=== PATIENT | female | born 1990 | race Caucasian/White ===

== ENCOUNTER 2021-03-08 18:55 | Emergency (ER) | payer OTHER ==
[~2021-03-08] VITALS: Ht 165.1 cm; Wt 87.4 kg
[2021-03-08 21:17] LABS: BASO % 0.3 % (0.0-1.0); EOS # 0.1 10^3/uL (0.0-0.5); EOS % 0.8 % (0.0-3.0); HEMATOCRIT 43.6 % (36.0-47.0); HEMOGLOBIN 14.2 g/dl (12.0-15.5); LYMPH # 1.5 10^3/uL (1.5-5.0); LYMPH % 19.8 % (24.0-44.0); MEAN CORPUSCULAR HEMOGLOBIN 28.2 pg (27.0-33.0); MEAN CORPUSCULAR HGB CONC 32.6 g/dl (32.0-36.5); MEAN CORPUSCULAR VOLUME 86.7 fl (80.0-96.0); MONO # 0.4 10^3/uL (0.0-0.8); MONO % 5.5 % (2.0-8.0); NEUTROPHILS # 5.6 10^3/uL (1.5-8.5); NEUTROPHILS % 73.3 % (36.0-66.0); PLATELET COUNT, AUTOMATED 367 10^3/uL (150-450); RED BLOOD COUNT 5.03 10^6/uL (4.00-5.40); WHITE BLOOD COUNT 7.6 10^3/uL (4.0-10.0)
[2021-03-08 21:45] LABS: ALBUMIN 4.3 GM/DL (3.2-5.2); ALT/SGPT 666 U/L (12-78); BILIRUBIN,DIRECT 1.1 MG/DL (0.0-0.2); BILIRUBIN,TOTAL 1.6 MG/DL (0.2-1.0); BLOOD UREA NITROGEN 6 MG/DL (7-18); CALCIUM LEVEL 9.4 MG/DL (8.5-10.1); CARBON DIOXIDE LEVEL 29 MEQ/L (21-32); CHLORIDE LEVEL 105 MEQ/L (98-107); CREATININE FOR GFR 0.59 MG/DL (0.55-1.30); GLOMERULAR FILTRATION RATE > 60.0 (>60); GLUCOSE, FASTING 89 MG/DL (70-100); LIPASE 97 U/L (73-393); POTASSIUM SERUM 3.7 MEQ/L (3.5-5.1); SODIUM LEVEL 139 MEQ/L (136-145); TOTAL PROTEIN 7.8 GM/DL (6.4-8.2)
[2021-03-08 21:51] LABS: HCG, SERUM QUALITATIVE NEGATIVE (NEGATIVE)
[2021-03-08] MEDS ORDERED: ISOVUE-370 76% 100ML VIAL As Ordered ONE (21:55)
--- NOTE | 2021-03-08 22:32 | REPVR ---
PROCEDURE INFORMATION: Exam: CT Abdomen And Pelvis With Contrast Exam date and time: 03/08/2021 10:00 PM Age: 30 years old Clinical indication: Abdominal pain; Localized; Right; Additional info: Right sided pain TECHNIQUE: Imaging protocol: Computed tomography of the abdomen and pelvis with contrast. Radiation optimization: All CT scans at this facility use at least one of these dose optimization techniques: automated exposure control; mA and/or kV adjustment per patient size (includes targeted exams where dose is matched to clinical indication); or iterative reconstruction. Contrast material: ISOVUE 370; Contrast volume: 100 ml; Contrast route: INTRAVENOUS (IV); COMPARISON: No relevant prior studies available. FINDINGS: Lungs: No suspicious mass or airspace process in the visualized lung bases. Liver: Liver appears normal with no focal abnormality. Gallbladder and bile ducts: Gallstones are present in the gallbladder lumen. No adjacent fluid or duct dilatation. Pancreas: Pancreas appears normal. No focal mass or peripancreatic inflammation. Spleen: Spleen appears homogeneous without focal mass. Adrenal glands: Adrenal glands are normal in appearance. Kidneys and ureters: Kidneys appear normal, with no stone, solid mass or hydronephrosis. Stomach and bowel: No evidence of small bowel obstruction. Terminal ileum has normal appearance. No evidence of acute diverticulitis. Appendix: Normal caliber appendix is identified, with no adjacent inflammation. Intraperitoneal space: No pneumoperitoneum. Vasculature: No aortic aneurysm. Main portal and splenic veins enhance normally. Lymph nodes: No enlarged lymph nodes. Urinary bladder: Urinary bladder appears normal. Reproductive: Female reproductive organs appear unremarkable. Bones/joints: Bony structures show no acute fracture or destructive process. Soft tissues: Bilateral breast implants are present. No concerning focal abnormality of the extra-abdominal and pelvic soft tissues. IMPRESSION: 1. Cholelithiasis without evidence of biliary obstruction. 2. No evidence of acute appendicitis or other explanation for acute right sided abdominal pain Electronically signed by: Rony Horn On 03/08/2021 22:32:57 PM
--- NOTE | 2021-03-08 23:08 | REPVR ---
PROCEDURE INFORMATION: Exam: US Abdomen, Limited; Right Upper Quadrant Exam date and time: 03/08/2021 11:01 PM Age: 30 years old Clinical indication: Abdominal pain; Epigastric; Additional info: Right sided pain/ elevated lfts TECHNIQUE: Imaging protocol: US abdomen. Real time ultrasound with image documentation. Limited exam focused on the right upper quadrant. COMPARISON: CT ABD/PEL W/IV CONTRAST ONLY 03/08/2021 10:00 PM FINDINGS: Liver: Liver is homogeneous in echotexture, with no focal lesion. Gallbladder: No sonographic evidence of biliary obstruction or acute cholecystitis No elicited pain to RUQ transducer pressure over the gallbladder during the exam. Gallbladder contains multiple intraluminal stones. Gallbladder wall measures 2 mm. No adjacent fluid Common bile duct: Common bile duct measures 11.5 mm in diameter. Pancreas: Pancreas is only partially visualized due to bowel shadowing. No overt abnormailty. Right kidney: Right kidney measures 4-5 cm in long axis. Right kidney appears normal. Intraperitoneal space: No free fluid. IMPRESSION: Cholelithiasis.. No evidence of biliary obstruction or acute cholecystitis Electronically signed by: Rony Horn On 03/08/2021 23:08:51 PM
[2021-03-09] MEDS ORDERED: ONDANSETRON 4MG/2ML VIAL IV ONE (01:10)
[2021-03-09 02:45] VITALS: BP 138/85
== END 2021-03-09 02:48 | disposition short-term general hospital (02) ==
LOC: M ED 18:55
DX: K83.9 Disease of biliary tract, unspecified (principal); K80.20 Calculus of gallbladder without cholecystitis without obstruction; R79.89 Other specified abnormal findings of blood chemistry; F17.200 Nicotine dependence, unspecified, uncomplicated
CPT/HCPCS: 36415; 74177; 76705; 80048; 80076; 81001; 83690; 84703; 85025; 87798; 96374; 99284; J2405; Q9967